=== PATIENT | male | born 1970 | race Caucasian/White ===

== ENCOUNTER 2023-08-15 17:26 | Emergency (ER) | payer OTHER, SELFPAY ==
--- NOTE | ~2023-08-15 | CT_ITS ---
EXAMINATION: CT ANGIOGRAM CHEST, PE PROTOCOL CT ABDOMEN AND PELVIS WITH CONTRAST CLINICAL INFORMATION: Pleurisy, recent travel, concern for pulmonary embolism. Right-sided abdominal pain COMPARISON: None TECHNIQUE: Multidetector CT pulmonary angiography of the thorax was performed according to the pulmonary embolism protocol after intravenous administration of 100 mL Omnipaque 350. Additionally, images of the abdomen and pelvis were acquired. Reformatted coronal and sagittal imaging was performed. 3-D MIP images performed at a dedicated separate workstation. This CT examination was performed using dose optimization techniques as appropriate, variously including the following: *Automated exposure control *Adjustment of mA and/or kV according to patient size (this includes techniques or standardized protocols for targeted exams where dose is matched to indication/reason for exam; i.e. extremities or head) *Use of iterative reconstruction technique DLP: 467 mGy-cm QUALITY: Overall Exam Quality: Satisfactory. Pulmonary Arterial Enhancement: Adequate. Breath Hold: Adequate. Artifacts Impacting Image Quality: None. FINDINGS: VASCULAR: Heart: Normal in size. No coronary artery calcifications. Pulmonary Artery: No filling defect is identified in the central, lobar, or proximal segmental pulmonary arterial branches to suggest pulmonary embolus. NONVASCULAR: THORAX: Thyroid Gland: The visualized thyroid gland is normal. Lymph Nodes: No supraclavicular, axillary, mediastinal or hilar lymphadenopathy is identified. Airways: The trachea and central bronchi are normal. Lungs: No airspace consolidation. No suspicious nodules or masses. Pleura: No pleural effusion. No pneumothorax. ABDOMEN/PELVIS: Liver: Homogeneous in attenuation. Normal in size. Gallbladder: Absent. Biliary System: No intrahepatic or extrahepatic biliary dilation. Pancreas: Homogeneous in attenuation. Spleen: Normal in size. Genitourinary: Bilateral kidneys demonstrate symmetric enhancement. No perinephric fluid collection. No renal calculi. No hydroureteronephrosis. Urinary bladder is fluid-filled without focal wall thickening. Adrenal Glands: Unremarkable. Reproductive: Prostate present. Gastrointestinal: The visualized alimentary tract is normal in course. No evidence of obstruction. Appendix: Absent. Peritoneum: No pneumoperitoneum. No intra-abdominal fluid collection. Lymph Nodes: No pathologically enlarged abdominal or pelvic lymph nodes. Soft Tissues/Musculoskeletal: There is no acute fracture or significant focal osseous lesion. CT/CT abdomen pelvis w IV con IMPRESSION: 1. No acute pulmonary embolus up to the proximal segmental level. 2. No acute abdominopelvic pathology. Fleischner guidelines were followed.
[2023-08-15 17:37] VITALS: BP 181/93; PULSE 73; RESP 20; TEMP 36.8; O2SAT 98; BMI 33.5
--- NOTE | 2023-08-15 17:42 | ECG_ITS ---
Test Reason : ABDOMINAL PAIN Blood Pressure : / mmHG Vent. Rate : 065 BPM Atrial Rate : 065 BPM P-R Int : 158 ms QRS Dur : 088 ms QT Int : 390 ms P-R-T Axes : 036 016 025 degrees QTc Int : 405 ms Normal sinus rhythm Normal ECG No previous ECGs available Referred By: Moe Mao Electronically Signed By:Cuba Jarvis
--- NOTE | 2023-08-15 17:48 | ED.GENADULT ---
HPI - General Adult General Chief complaint: Abdominal Pain Stated complaint: abd pain head pressure Time Seen by Provider: 08/15/23 20:58 History of Present Illness HPI narrative: The patient is a 53-year-old male with a history of an appendectomy and a cholecystectomy. He says that about 5 days ago he developed a pain in his right upper abdomen or right lower chest that made him think that he was having a problem with his liver. Pain has persisted over the last several days and he has also had some headaches. He became concerned about these worsening symptoms and came to the emergency room. No definite fever. He has had a low-grade cough for several months but no change in the cough recently. No shortness of breath. No nausea or vomiting. No loss of appetite. Related Data Allergies Allergy/AdvReac Type Severity Reaction Status Date / Time No Known Allergies Allergy Verified 08/15/23 17:40 Review of Systems Review of Systems: Yes all other systems are reviewed and are negative [facility] Social History Social History Advance Directives: No Advance Directives Information Provided: No Physical Exam ED Vital Signs: Vital Signs - 24 hr 08/15/23 17:37 08/15/23 20:17 08/15/23 22:00 Temperature 98.2 F 98.2 F 98 F Pulse Rate 73 67 66 Respiratory Rate 20 14 16 Blood Pressure 181/93 H 138/90 H 146/93 H Pulse Oximetry 98 96 95 Oxygen Delivery Method Room Air Room Air Room Air BMI result Body Mass Index 33.5 Const Other: The patient is a healthy looking 53-year-old who was awake and alert and does not appear in any distress. HENMT Other: The face is symmetrical. ?Mucous membranes moist. Eyes Other: Pupils are round equal, conjunctivae are clear, extraocular movements intact Neck Other: No JVD Resp Effort & Inspection: normal respiratory effort Auscultation: clear to auscultation bilaterally Cardio Rate: regular rate Rhythm: regular rhythm Heart sounds: S1 normal heart sound present and S2 normal heart sound present GI Other: Abdomen is soft and nontender. No right upper quadrant tenderness. General: Yes no CVA tenderness Back/Spine/Pelvis Back: no CVA tenderness Skin Other: Skin is dry and unremarkable Neuro Other: The patient is awake, alert, pleasant, cooperative. Speech is clear, face symmetrical, moving all extremities normally. Grossly neurologically intact. Extrem Other: No calf swelling or tenderness, no asymmetry, no edema Course Course Course Narrative: RME: 53-year-old male presents to ED for pleurisy, and right upper quadrant abdominal pain. Patient recently travel from [place]. Patient denies any leg swelling, calf pain, fever or chills. Labs EKG abdominal chest CT ordered. Medications Administered Discontinued Medications Generic Name Dose Route Start Last Admin Trade Name Freq PRN Reason Stop Dose Admin Iohexol 100 ml 08/15/23 18:55 08/15/23 18:55 Iohexol 350 Mg/Ml 100 Ml Infus..Btl IV 08/15/23 18:56 85 ml ONCE ONE Administration Medical Decision Making Medical Decision Making MDM Narrative: The patient is a 53-year-old male with a history of an appendectomy and a cholecystectomy who was on no medications who presents for evaluation of right upper quadrant abdominal pain that was also pleuritic. Labs and CT scans were ordered at triage. His workup in the emergency room is unremarkable. He had a CT pulmonary angiogram which is negative. A CT of the abdomen and pelvis which is negative. He had an unremarkable EKG, negative troponin, other labs unremarkable. Clinically he looks well. The patient was reassured. He apparently has an upcoming appointment with a new primary care doctor in the [facility] system. He is encouraged to keep this appointment. He should return to the ER if significantly worse. Lab Data 08/15/23 18:03 08/15/23 18:03 Labs: Lab Results 08/15/23 Range/Units 18:03 WBC 5.0 (4.8-10.8) X10*3/uL RBC 4.88 (4.60-5.80) X10*6/uL Hgb 14.8 (14.0-18.0) g/dl Hct 42.4 (42.0-52.0) % MCV 86.9 (80.0-98.0) fL MCH 30.3 (27.0-33.0) pg MCHC 34.9 (31.0-36.0) g/dl RDW 12.5 (11.0-16.0) % Plt Count 258 (160-400) X10*3/uL MPV 9.9 (9.4-12.4) fL Immature Gran % (Auto) 0.2 (0.0-0.4) % Neut % (Auto) 61.2 (45-73) % Lymph % (Auto) 27.7 (20-40) % Ross % (Auto) 8.7 (2-11) % Eos % (Auto) 1.4 (0-4) % Baso % (Auto) 0.8 (0-2) % Lymph # (Auto) 1.4 (1.2-4.9) X10*3/uL Ross # (Auto) 0.4 (0.1-1.2) X10*3/uL Eos # (Auto) 0.1 (0.0-0.4) X10*3/uL Baso # (Auto) 0.0 (0.0-0.2) X10*3/uL Abs Immat Gran (auto) 0.01 (0.00-0.03) X10*3/uL Absolute Neuts (auto) 3.0 (2.0-8.3) x10*3/uL Absolute Nucleated RBC 0.000 (0.0-0.012) X10*3/uL Nucleated RBC % (auto) 0.0 (0.0-0.2) /100WBC PT 10.9 L (11.1-13.3) SEC INR 0.9 (0.9-1.1) APTT 28.7 (26.0-36.8) SEC Sodium 141 (135-145) mmol/L Potassium 4.0 (3.3-5.1) mmol/L Chloride 106 (96-108) mmol/L Carbon Dioxide 27 (22-29) mmol/L Anion Gap 12 (12-20) BUN 8 L (9-16) mg/dL Creatinine 0.97 (0.5-1.4) mg/dL Estim Creat Clear Calc 113.0 Estimated GFR > 60 Random Glucose 102 (60-115) mg/dL Calcium 9.8 (8.4-10.2) mg/dL Total Bilirubin 0.6 (0.0-1.0) mg/dL AST 23 (5-37) U/L ALT 26 (0-40) U/L Alkaline Phosphatase 35 L (39-117) U/L Troponin I High Sens < 2.7 (<3.5-35.0) ng/L B-Natriuretic Peptide 27 (<100) pg/mL Total Protein 7.8 (6.5-8.0) g/dL Albumin 4.8 (3.5-5.0) g/dL Lipase 39 (8-78) U/L Influenza Type A (PCR) NEGATIVE (Negative) Influenza Type B (PCR) NEGATIVE (Negative) RSV RNA Qual (PCR) NEGATIVE (Negative) SARS-CoV-2 RNA (RT-PCR) NEGATIVE (Negative) Independent Interpretation I performed an independent interpretation of an: EKG Interpretation: EKG at 17:55 shows normal sinus rhythm at 65 beats per minute. It is a normal EKG. Discharge Plan Discharge Clinical Impression: Abdominal pain, acute, right upper quadrant, Abdominal pain Patient Disposition: Home, Self-Care Additional Instructions: Your testing in the emergency room today seems very reassuring. I do not think there is any acutely dangerous process at work. Please plan on following up with your new primary care doctor as discussed. Return to the emergency room if worse. Interventions: ED Discharge Assessment Last Done: 08/15/23 22:00 Discharge Date/Time: 08/15/23 22:01 Print Language: Latvian
[2023-08-15 18:08] LABS: MANUAL DIFF FLAG NO
[2023-08-15 18:10] LABS: Basophils Percent Auto 0.8 % (0-2); Eosinophils Absolute Auto 0.1 X10*3/uL (0.0-0.4); Eosinophils Percent Auto 1.4 % (0-4); Hematocrit 42.4 % (42.0-52.0); Hemoglobin 14.8 g/dl (14.0-18.0); Imm Gran Abs Auto 0.01 X10*3/uL (0.00-0.03); Imm Gran Pct Auto 0.2 % (0.0-0.4); Lymphocytes Absolute Auto 1.4 X10*3/uL (1.2-4.9); Lymphocytes Percent Auto 27.7 % (20-40); Mean Corpuscular HGB Conc 34.9 g/dl (31.0-36.0); Mean Corpuscular Hemoglobin 30.3 pg (27.0-33.0); Mean Corpuscular Volume 86.9 fL (80.0-98.0); Mean Platelet Volume 9.9 fL (9.4-12.4); Monocytes Absolute Auto 0.4 X10*3/uL (0.1-1.2); Monocytes Percent Auto 8.7 % (2-11); Neutrophils Percent Auto 61.2 % (45-73); Platelet Count 258 X10*3/uL (160-400); Red Blood Count 4.88 X10*6/uL (4.60-5.80); Red Cell Distribution Width 12.5 % (11.0-16.0)
[2023-08-15 18:22] LABS: Alanine Aminotransferase 26 U/L (0-40); Albumin Level 4.8 g/dL (3.5-5.0); Alkaline Phosphatase 35 U/L (39-117); Anion Gap 12 (12-20); Aspartate Amino Transferase 23 U/L (5-37); Bilirubin Total 0.6 mg/dL (0.0-1.0); Blood Urea Nitrogen 8 mg/dL (9-16); Calcium 9.8 mg/dL (8.4-10.2); Carbon Dioxide 27 mmol/L (22-29); Chloride 106 mmol/L (96-108); Estimated Glomerular Filt Rate > 60; Glucose Random 102 mg/dL (60-115); Lipase 39 U/L (8-78); Sodium 141 mmol/L (135-145); Total Protein 7.8 g/dL (6.5-8.0)
[2023-08-15 18:24] LABS: INTERNATIONAL NORM RATIO 0.9 (0.9-1.1); Prothrombin Time 10.9 SEC (11.1-13.3)
[2023-08-15 18:27] LABS: Partial Thromboplastin Time 28.7 SEC (26.0-36.8)
[2023-08-15 18:28] LABS: B Type Natriuretic Peptide 27 pg/mL (<100)
[2023-08-15 18:40] LABS: Troponin-I High Sensitivity < 2.7 ng/L (<3.5-35.0)
[2023-08-15 18:49] LABS: Influenza A PCR NEGATIVE (Negative); Influenza B PCR NEGATIVE (Negative); Resp Syncy Virus RNA Qual PCR NEGATIVE (Negative); SARS COV2 PCR INHOUSE NEGATIVE (Negative)
[2023-08-15] MEDS: iohexoL 350 MG/ML 100 ML INFUS..BTL IV (18:55)
[2023-08-15 20:17] VITALS: BP 138/90; PULSE 67; RESP 14; TEMP 36.8; O2SAT 96
[2023-08-15 22:00] VITALS: BP 146/93; PULSE 66; RESP 16; TEMP 36.6; O2SAT 95
== END 2023-08-15 22:01 | disposition home or self-care (01) ==
PROVIDERS: Physician Assistant; Emergency Provider Emergency Medicine; PCP Student in an Organized Health Care Education/Training Program
DX: R10.11 Right upper quadrant pain (principal); Z90.49 Acquired absence of other specified parts of digestive tract; Z03.818 Encounter for observation for suspected exposure to other biological agents ruled out
CPT/HCPCS: 0241U; 36415; 71275; 74177; 80053; 83690; 83880; 84484; 85025; 85610; 85730; 93005; 99284; 99285; Q9967

== ENCOUNTER → 2023-08-15 17:42 | Outpatient (BNV) | payer OTHER, SELFPAY | PROVIDERS: Emergency Provider Emergency Medicine; PCP Student in an Organized Health Care Education/Training Program; Visit Provider Internal Medicine Cardiovascular Disease | DX: R10.9 Unspecified abdominal pain (principal) | CPT/HCPCS: 93010 ==